=== PATIENT | female | born 1995 | race Caucasian/White ===

== ENCOUNTER 2017-12-13 09:05 | Outpatient (CLI) | payer BC | END 2017-12-13 09:06 | disposition home or self-care (01) | LOC: BICRAD 09:05 | PROVIDERS: ATTEND Internal Medicine Rheumatology | DX: M06.4 Inflammatory polyarthropathy (principal) | CPT/HCPCS: 72100 ==

== ENCOUNTER 2018-05-08 08:48 | Outpatient (CLI) | payer BC | END 2018-05-08 08:49 | disposition home or self-care (01) | LOC: BICMRI 08:48 | PROVIDERS: ATTEND Nurse Practitioner Family | DX: M54.42 Lumbago with sciatica, left side (principal); M54.41 Lumbago with sciatica, right side; G89.29 Other chronic pain | CPT/HCPCS: 72148 ==